=== PATIENT | female | born 1965 | race African-American/Black ===

== ENCOUNTER 2017-12-27 00:57 | Emergency (ER) | payer SELFPAY ==
[~2017-12-27] VITALS: Ht 172.7 cm; Wt 108.9 kg
[2017-12-27 01:05] VITALS: BP 119/67
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
[2017-12-27 05:30] VITALS: BP 117/68
--- NOTE | 2017-12-29 19:08 | Cardiology Report ---
APPROVED REPORT EKG Measurement Heart [id number] Normal sinus rhythm Minimal voltage criteria for LVH, may be normal variant Borderline ECG
== END 2017-12-27 05:30 | disposition home or self-care (01) ==
LOC: EDBD 00:57 → EMR 02:08
DX: R07.9 Chest pain, unspecified (principal); I25.2 Old myocardial infarction; Z95.5 Presence of coronary angioplasty implant and graft; Z88.8 Allergy status to other drugs, medicaments and biological substances; Z85.41 Personal history of malignant neoplasm of cervix uteri; Z85.038 Personal history of other malignant neoplasm of large intestine; I25.10 Atherosclerotic heart disease of native coronary artery without angina pectoris; E66.9 Obesity, unspecified; Z68.36 Body mass index [BMI] 36.0-36.9, adult
CPT/HCPCS: 84484; 93005; 99283